=== PATIENT | male | born 1945 | race Caucasian/White ===

== ENCOUNTER 2020-07-15 22:21 | Inpatient (IN) | payer MEDICARE, OTHER ==
[2020-07-16] MEDS ORDERED: Ondansetron PF 4 MG/2 ML Vial IVP PRN (02:00)
[2020-07-16] MEDS ORDERED: Ondansetron ODT 4 MG TAB SL PRN (02:00)
[2020-07-16] MEDS ORDERED: Acetaminophen 325 MG TAB PO PRN (02:00)
[2020-07-16 02:09] VITALS: BMI 23.8
[2020-07-16] MEDS: Vancomycin HCl 1.25 GM in Sodium Chloride 0.9% 250 ML 250 ML IVPB SCH ×2 (05:00→18:00)
--- NOTE | 2020-07-16 05:01 | HP ---
PRIMARY CARE PHYSICIAN: [place] of town, [place]. CHIEF COMPLAINT: Left elbow swelling. HISTORY OF PRESENT ILLNESS: The patient is a 75-year-old male with past medical history significant for diabetes, arthritis, gout, and hyperlipidemia. He presented to an ER in [place] today for redness and pain in his left elbow. He states that he fell 4 days ago and landed on his elbow. He did not have any pain in it until now. He does not think that he has had any fevers. He denies any vomiting, shortness of breath, chest pain, abdominal pain, contact with sick persons or bowel or bladder changes. No previous surgeries on that elbow. In the ER in [place], they took an x-ray of his elbow. They completed lab work and they administered medications. The patient was given ceftriaxone 1 g IV, vancomycin 1 g IV, and Zofran 4 mg. He was then transferred over to the [facility]. He did not receive any medications at this ER or have any further workup. He was transferred as the [facility] does not have Ortho available if needed. PAST MEDICAL HISTORY: Diabetes, arthritis, gout, hyperlipidemia. PAST SURGICAL HISTORY: Pacemaker placement, bilateral knee surgery. ALLERGIES: NO KNOWN DRUG ALLERGIES. MEDICATIONS: 1. 100 mg once a day. 2. Furosemide 20 mg once a day. 3. Losartan 10 mg twice a day. 4. Potassium 10 mEq once a day. SOCIAL HISTORY: The patient lives at home. He denies any alcohol, smoking, or drug use. FAMILY HISTORY: Noncontributory to this visit. REVIEW OF SYSTEMS: All other review of systems are negative unless noted in HPI. PHYSICAL EXAMINATION: VITAL SIGNS: Temperature 97.9, pulse 68, respiratory rate 16, O2 saturation 95% on room air, blood pressure 140/79. CONSTITUTIONAL: Afebrile, normotensive. HEENT: Head; atraumatic, normocephalic. Eyes; extraocular muscles intact. PERRLA. RESPIRATORY: Clear to auscultation bilaterally. No rhonchi. No wheezes. No rales. CARDIOVASCULAR: Regular rate and rhythm. No murmurs. No rubs. No gallops. ABDOMEN: Nontender, nondistended. No guarding. No rigidity. Normal bowel sounds. EXTREMITIES: Left upper extremity with erythema and skin thickening on the left elbow. Cellulitis, blanchable. Full range of motion. Pulses intact. LABORATORY AND IMAGING DATA: These are from the [facility]. Creatinine 0.8, sodium 137, potassium 4.4, lactic acid 1.42, glucose 109. Left elbow x-ray, 3 views, there is soft-tissue swelling in the posterior aspect of the elbow joint. Chronic avulsive changes seen in the ulna. Degenerative changes are seen in the elbow joint. Grossly, there is no acute fracture, subluxation. Recommendation of a followup x-ray should be done in 7 to 14 days. IMPRESSION AND PLAN: Left elbow cellulitis. Continue to monitor for any fever and monitor labs for any increase in white blood cells or other signs of infection. Continue the patient on IV antibiotics. We will defer to day team at this time. Does not appear to have a septic joint as he has full range of motion. Hopefully, we will be able to start seeing improvement soon with the IV antibiotics. Blood cultures have been drawn. The patient with history of gout. We will continue patient on his home medications. Also history of high blood pressure, patient is normotensive currently. We will also continue patient on his home blood pressure medications along with his cholesterol medication. GI and DVT prophylaxis in place. The patient wishes to be a full code. His surrogate decision maker is his son. The patient has been discussed with Dr. Moreno. Job ID: [id number]
[2020-07-16 05:27] LABS: #Eosinphils 0.1 thou/uL (0.0-0.7); #Lymphocytes 2.4 thou/uL (1.20-3.40); #Monocytes 1.3 thou/uL (0.11-0.59); #Neutrophils 5.6 thou/uL (1.40-6.50); %Basophils 0.3 % (0.0-1.0); %Eosinophils 1.5 % (0.0-10.0); %Lymphocytes 25.2 % (21.0-51.0); %Monocytes 13.2 % (0.0-10.0); %Neutrophils 59.8 % (42.0-75.0); Hemoglobin 13.6 g/dL (14.0-18.0); Mean Corpuscular HGB CONC 34.4 g/dL (32.0-36.0); Mean Corpuscular Hemoglobin 32.8 pg (27.0-31.0); Mean Corpuscular Volume 95.5 fL (78.0-98.0); Mean Platelet Volume 5.9 fL (7.4-10.4); Platelet Count 202 thou/uL (130-400); RBC Distribution Width 13.9 % (11.5-14.5); Red Blood Cell (RBC) Count 4.13 mill/uL (4.70-6.10); White Blood Cell (WBC) Count 9.4 thou/uL (4.8-10.8)
[2020-07-16 05:47] LABS: Anion Gap 10 mmol/L (10-20); BUN (Urea Nitrogen) 16 mg/dL (8.4-25.7); Calc. Creatinine Clearance 89 mL/min (70-130); Calcium 8.7 mg/dL (7.8-10.44); Carbon Dioxide 25 mmol/L (23-31); Chloride 104 mmol/L (98-107); Estimated GFR-MDRD Greater than 90; Glucose 101 mg/dL (83-110); Potassium 3.9 mmol/L (3.5-5.1); Sodium 135 mmol/L (136-145)
[2020-07-16] MEDS: Famotidine 20 MG TAB PO SCH ×2 (08:59→21:08)
[2020-07-16 12:55] LABS: SARS-CoV-2 MS2 Positive; SARS-CoV-2 N Gene Negative; SARS-CoV-2 S Gene Negative; SARS-CoV-2 by NAA Not Detected (NotDetected); SARS-CoV-2 orf1ab Negative
--- NOTE | 2020-07-16 18:14 | PDOC.HOSPP ---
- Subjective Encounter Date: 07/16/20 Encounter Time: 18:00 Subjective: f/u for L elbow cellulitis on Rocephin/Vancomycin. States he fell on L elbow a few days prior then noted the redness and swelling. X-rays neg for fracture or dislocation. - Objective Vital Signs & Weight: Vital Signs (12 hours) Temp Pulse Resp BP Pulse Ox 07/16/20 15:33 98.4 F 69 18 144/74 H 97 07/16/20 12:27 98.5 F 73 16 115/84 95 07/16/20 08:18 98.0 F 68 14 129/55 L 94 L 07/16/20 08:00 94 L Weight Weight 161 lb I&O: 07/15/20 07/16/20 07/17/20 06:59 06:59 06:59 Intake Total 490 Balance 490 Result Diagrams: 07/16/20 05:12 07/16/20 05:12 Additional Labs: Laboratory Tests 07/16/20 01:20 SARS-CoV-2 (PCR) Not Detected Hospitalist ROS - Medication Medications: Active Medications Generic Name Dose Route Start Last Admin Trade Name Tyrelq PRN Reason Stop Dose Admin Famotidine 20 mg 07/16/20 09:00 07/16/20 08:59 Famotidine 20 Mg Tab PO 20 mg BID HUGO Administration Vancomycin HCl 1.25 gm/ Sodium 250 mls @ 166.67 mls/hr 07/16/20 06:00 07/16/20 05:00 Chloride IVPB 250 mls 0600,1800 HUGO Administration - Exam General Appearance: NAD, awake alert Eye: PERRL, anicteric sclera ENT: normocephalic atraumatic, no oropharyngeal lesions Neck: supple, symmetric, no JVD, no thyromegaly, no lymphadenopathy Heart: RRR, no gallops, no rubs, normal peripheral pulses Heart - other findings: S1, S2 Respiratory: CTAB, no rales, no ronchi, normal chest expansion Gastrointestinal: soft, non-tender, non-distended, normal bowel sounds, no palpable masses Extremities: no cyanosis Extremities - other findings: L elbow with edema/erythema and TTP Skin: normal turgor Neurological: cranial nerve grossly intact, no new deficit Musculoskeletal: normal tone, normal strength, no muscle wasting Psychiatric: normal affect, A&O x 3 Hosp A/P (1) Cellulitis of left elbow Code(s): L03.114 - CELLULITIS OF LEFT UPPER LIMB Status: Acute Plan: Continue Rocephin/Vancomycin, serial exams, consider Orthopedic evaluation, pain control (2) HTN (hypertension) Code(s): I10 - ESSENTIAL (PRIMARY) HYPERTENSION Status: Chronic Qualifiers: Hypertension type: essential hypertension Qualified Code(s): I10 - Essential (primary) hypertension Plan: Resume home BP regimen (3) DM II (diabetes mellitus, type II), controlled Code(s): E11.9 - TYPE 2 DIABETES MELLITUS WITHOUT COMPLICATIONS Status: Acute Plan: Diet managed (4) CAD (coronary artery disease) Code(s): I25.10 - ATHSCL HEART DISEASE OF [place] CORONARY ARTERY W/O ANG PCTRS Status: Chronic Plan: Continue med mgmt, ASA/Lovastatin - Plan continue antibiotics, social insurance administrator, out of bed/ambulate, DVT proph w/SCDs Stable currently Continue Vancomycin Increase Rocephin 2gm IV daily Pain control as indicated Toradol 30mg IV q6h prn Consider Orthopedic evaluation if no improvement in 24h AM lab: BMP, CBC, Vanc trough
[2020-07-16] MEDS ORDERED: cefTRIAXone\\ROCEPHIN 1 GM in Sodium Chloride 0.9% 100 ML IVPB SCH (19:00)
[2020-07-16] MEDS ORDERED: cefTRIAXone\\ROCEPHIN 2 GM in Sodium Chloride 0.9% 100 ML IVPB SCH (19:00)
[2020-07-16] MEDS ORDERED: FLU VACC QS2020-21(65YR UP)/PF 240 MCG/0.7 ML SYRINGE IM ONE (21:00)
[2020-07-17 05:14] LABS: #Eosinphils 0.2 thou/uL (0.0-0.7); #Lymphocytes 2.2 thou/uL (1.20-3.40); #Neutrophils 6.4 thou/uL (1.40-6.50); %Basophils 0.2 % (0.0-1.0); %Eosinophils 1.6 % (0.0-10.0); %Lymphocytes 22.1 % (21.0-51.0); %Monocytes 10.7 % (0.0-10.0); %Neutrophils 65.3 % (42.0-75.0); Hemoglobin 13.3 g/dL (14.0-18.0); Mean Corpuscular HGB CONC 32.4 g/dL (32.0-36.0); Mean Corpuscular Hemoglobin 30.5 pg (27.0-31.0); Mean Corpuscular Volume 94.2 fL (78.0-98.0); Mean Platelet Volume 6.1 fL (7.4-10.4); Platelet Count 210 thou/uL (130-400); RBC Distribution Width 13.8 % (11.5-14.5); Red Blood Cell (RBC) Count 4.35 mill/uL (4.70-6.10); White Blood Cell (WBC) Count 9.8 thou/uL (4.8-10.8)
[2020-07-17 05:40] LABS: Anion Gap 14 mmol/L (10-20); BUN (Urea Nitrogen) 17 mg/dL (8.4-25.7); Calc. Creatinine Clearance 83 mL/min (70-130); Calcium 8.9 mg/dL (7.8-10.44); Carbon Dioxide 22 mmol/L (23-31); Chloride 104 mmol/L (98-107); Estimated GFR-MDRD Greater than 90; Glucose 110 mg/dL (83-110); Potassium 3.9 mmol/L (3.5-5.1); Sodium 136 mmol/L (136-145); Uric Acid 6.4 mg/dL (3.5-7.2)
[2020-07-17 08:03] LABS: Vancomycin, Trough 14.8 ug/mL
[2020-07-17] MEDS: Losartan 25 MG TAB PO SCH (08:52)
[2020-07-17] MEDS: Vancomycin HCl 1.25 GM in Sodium Chloride 0.9% 250 ML 250 ML IVPB SCH ×2 (08:52→19:59)
[2020-07-17] MEDS: Potassium Chloride 10 MEQ TAB PO SCH (08:52)
[2020-07-17] MEDS: Aspirin 81 mg Enteric Coated Tablet PO SCH (08:52)
[2020-07-17] MEDS: Furosemide 20 MG TAB PO SCH (08:52)
[2020-07-17] MEDS: Allopurinol 100 MG TAB PO SCH (08:53)
[2020-07-17] MEDS: Famotidine 20 MG TAB PO SCH ×2 (08:53→19:59)
--- NOTE | 2020-07-17 17:12 | PDOC.HOSPP ---
- Subjective Encounter Date: 07/17/20 Encounter Time: 09:00 Subjective: Pt seen for followup re: cellulitis. Denies fevers. c/o left elbow pain. - Objective Vital Signs & Weight: Vital Signs (12 hours) Temp Pulse Resp BP Pulse Ox 07/17/20 15:37 99.3 F 80 18 106/62 96 07/17/20 11:05 98.4 F 77 16 116/67 94 L 07/17/20 07:25 98.3 F 73 16 143/72 H 94 L Weight Weight 161 lb I&O: 07/16/20 07/17/20 07/18/20 06:59 06:59 06:59 Intake Total 490 340 Output Total 600 Balance 490 -260 Result Diagrams: 07/17/20 04:54 07/17/20 04:54 Additional Labs: I reviewed patient's labs and MAR Hospitalist ROS - Review of Systems Cardiovascular: denies: chest pain, palpitations, orthopnea, paroxysmal noc. dyspnea, edema, light headedness Musculoskeletal: reports: other (left elbow pain). denies: neck pain, shoulder pain, arm pain, back pain, hand pain, leg pain, foot pain Skin: reports: rash. denies: lesions, edyta, bruising - Medication Medications: Active Medications Generic Name Dose Route Start Last Admin Trade Name Pola PRN Reason Stop Dose Admin Allopurinol 100 mg 07/17/20 09:00 07/17/20 08:53 Allopurinol 100 Mg Tab PO 100 mg DAILY HUGO Administration Aspirin 81 mg 07/17/20 09:00 07/17/20 08:52 Aspirin 81 Mg Enteric Coated Tablet PO 81 mg DAILY HUGO Administration Famotidine 20 mg 07/16/20 09:00 07/17/20 08:53 Famotidine 20 Mg Tab PO 20 mg BID HUGO Administration Furosemide 20 mg 07/17/20 09:00 07/17/20 08:52 Furosemide 20 Mg Tab PO 20 mg DAILY HUGO Administration Vancomycin HCl 1.25 gm/ Sodium 250 mls @ 166.67 mls/hr 07/17/20 08:00 07/17/20 08:52 Chloride IVPB 250 mls 0800,2000 HUGO Administration Losartan Potassium 25 mg 07/17/20 09:00 07/17/20 08:52 Losartan 25 Mg Tab PO 25 mg DAILY HUGO Administration Potassium Chloride 10 meq 07/17/20 08:00 07/17/20 08:52 Potassium Chloride 10 Meq Tab PO 10 meq QAM-WM HUGO Administration Sodium Chloride 10 ml 07/16/20 21:00 07/17/20 08:53 Flush - Normal Saline 10 Ml Syringe IVF 10 ml Q12HR HUGO Administration - Exam General Appearance: awake alert Eye: anicteric sclera ENT: moist mucosa Neck: supple Heart: RRR Respiratory: CTAB Gastrointestinal: soft Skin: no rashes Psychiatric: normal affect, normal behavior Hosp A/P - Plan -Assessment (1) Cellulitis of left elbow Code(s): L03.114 - CELLULITIS OF LEFT UPPER LIMB Status: Acute (2) HTN (hypertension) Code(s): I10 - ESSENTIAL (PRIMARY) HYPERTENSION Status: Chronic (3) CAD (coronary artery disease) Code(s): I25.10 - ATHSCL HEART DISEASE OF [place] CORONARY ARTERY W/O ANG PCTRS Status: Chronic - Plan continue vancomycin and ceftriaxone Consult ID HTN controlled CAD stable.
[2020-07-17] MEDS: Simvastatin 5 MG TAB PO SCH (17:23)
--- NOTE | 2020-07-17 19:02 | CON ---
DATE OF CONSULTATION: 07/17/2020 REASON FOR CONSULTATION: Left elbow inflammatory process. HISTORY OF PRESENT ILLNESS: A 75-year-old with history of type 2 diabetes, gout, hyperlipidemia, who developed a left elbow inflammatory process for the past few days after falling on his elbow at home. The inflammatory process developed subsequently and has limited his range of motion. He was seen in [place] close to his home, given broad-spectrum antimicrobial coverage and transferred for admission. BP was 140/79 and temperature was 97.9. He denied any headaches. No visual symptoms, sore throat, odynophagia, or dysphagia. No cough, sputum production, or chest pain. No abdominal pain. Voiding without difficulty in the urinal. PAST MEDICAL HISTORY: Includes type 2 diabetes, gout, degenerative arthritis, hyperlipidemia. PAST SURGICAL HISTORY: Pacemaker placement for unknown indication, bilateral knee replacements. ALLERGIES: NONE. SOCIAL HISTORY: Retired, used to work with [employer]. Never smoker. No alcoholic beverage use. Lives with family members in [place]. FAMILY HISTORY: Noncontributory. CURRENT MEDICATIONS: 1. Ceftriaxone. 2. Vancomycin. 3. Zocor. 4. Furosemide. PHYSICAL EXAMINATION: VITAL SIGNS: T-max 99.2, blood pressure 116/67, heart rate 77, respiratory rate 16, O2 saturation 94% on room air. SKIN: Shows the extensive area of inflammatory activity with erythema in the left elbow, induration, and limitation of range of motion. There is obvious swelling of the bursa with spreading erythema from the bursa towards the proximal and distal aspects of the left upper extremity. LYMPH: No lymphadenopathy noted. HEENT: Ocular movements are conjugate. Sclerae are white. Conjunctivae are normal. Oral cavity with only a few remaining teeth, remainder ones with marked decay and gum disease. NECK: Supple. No jugular vein distention. LUNGS: Symmetric. Clear breath sounds. HEART: S1 and S2. Regular rate. No S3 or S4. ABDOMEN: Soft, not distended or tender. No ascites. No bladder distention. EXTREMITIES: No joint inflammatory activity. Specifically, the knee replacement sites have excellent range of motion with no inflammatory activity. Pulses are 1+ in dorsalis pedis. Plantar responses are flexor. NEUROLOGIC: His cognitive function, he is awake and alert. He is kind of hyperactive a little bit with flight of ideas and I do not know if he has a psychiatric diagnosis or not. He follows commands though and does not seem to be delusional at this point. LABORATORY DATA: His blood cultures are no growth thus far. The [place] laboratory data include creatinine 0.8 and glucose 109. X-rays of the elbow with soft tissue swelling. There are some changes in the ulna, not clear what the nature of those are, but no fracture. I do not see a CBC here. ASSESSMENT AND RECOMMENDATIONS: Type 2 diabetes, hx of gout, with fall and injury to the left elbow and now inflammatory process, likely olecranon bursitis of infectious nature. Intra-articular inflammatory process is not ruled out. CBC has already been ordered, but is not resulted yet. Blood cultures have been taken as well and are pending, and a basic metabolic panel. The organisms typically involved in this include Staphylococcus aureus/methicillin-resistant Staphylococcus aureus and Streptococci. In this case, because he fell, the possibility of gram-negative rods from soil is significant as well. Anaerobes are less likely. We will see how he responds to the antimicrobials, but he may require surgical drainage of the bursa depending on clinical progress. His range of motion was limited, but not that much. I think most of the pain that he has is from the bursa inflammatory process and cellulitis. In other words, an intra-articular process is less likely. He is at risk for seeding of the implants including the knee joints as well as the pacemaker in the near future, so there is recrudescence of fever or new development of fever. We will have to evaluate for those complications. In terms of treatment after the antimicrobials are resulted in improvement, then continuation will be hopefully with oral antimicrobial therapy. Evidently, it would be important to identify the organism, and again, he will need surgical consultation for olecranon bursitis, incision and drainage. Job ID: [id number] [facility]
[2020-07-17] MEDS: cefTRIAXone\\ROCEPHIN 2 GM in Sodium Chloride 0.9% 100 ML IVPB SCH (20:00)
[2020-07-18 05:54] LABS: #Eosinphils 0.2 thou/uL (0.0-0.7); #Lymphocytes 1.8 thou/uL (1.20-3.40); #Monocytes 1.1 thou/uL (0.11-0.59); #Neutrophils 5.6 thou/uL (1.40-6.50); %Basophils 0.5 % (0.0-1.0); %Eosinophils 2.6 % (0.0-10.0); %Lymphocytes 20.9 % (21.0-51.0); %Monocytes 12.3 % (0.0-10.0); %Neutrophils 63.7 % (42.0-75.0); Hemoglobin 13.2 g/dL (14.0-18.0); Mean Corpuscular HGB CONC 33.5 g/dL (32.0-36.0); Mean Corpuscular Hemoglobin 31.7 pg (27.0-31.0); Mean Corpuscular Volume 94.5 fL (78.0-98.0); Mean Platelet Volume 5.8 fL (7.4-10.4); Platelet Count 217 thou/uL (130-400); RBC Distribution Width 13.9 % (11.5-14.5); Red Blood Cell (RBC) Count 4.16 mill/uL (4.70-6.10); White Blood Cell (WBC) Count 8.8 thou/uL (4.8-10.8)
[2020-07-18 06:21] LABS: Anion Gap 11 mmol/L (10-20); BUN (Urea Nitrogen) 17 mg/dL (8.4-25.7); Calc. Creatinine Clearance 85 mL/min (70-130); Calcium 8.8 mg/dL (7.8-10.44); Carbon Dioxide 25 mmol/L (23-31); Chloride 104 mmol/L (98-107); Estimated GFR-MDRD Greater than 90; Glucose 103 mg/dL (83-110); Potassium 3.7 mmol/L (3.5-5.1); Sodium 136 mmol/L (136-145)
[2020-07-18] MEDS: Losartan 25 MG TAB PO SCH (08:39)
[2020-07-18] MEDS: Famotidine 20 MG TAB PO SCH ×2 (08:39→20:28)
[2020-07-18] MEDS: Potassium Chloride 10 MEQ TAB PO SCH (08:39)
[2020-07-18] MEDS: Allopurinol 100 MG TAB PO SCH (08:39)
[2020-07-18] MEDS: Furosemide 20 MG TAB PO SCH (08:39)
[2020-07-18] MEDS: Vancomycin HCl 1.25 GM in Sodium Chloride 0.9% 250 ML 250 ML IVPB SCH ×3 (08:39→21:06)
[2020-07-18] MEDS: Aspirin 81 mg Enteric Coated Tablet PO SCH (08:39)
--- NOTE | 2020-07-18 11:24 | CON ---
DATE OF CONSULTATION: 07/18/2020 REQUESTING PHYSICIAN: Dr. Jairon Brunner. CONSULTING PHYSICIAN: Dr. Jonnie Weston. REASON FOR CONSULTATION: Left elbow swelling and erythema. BRIEF CLINICAL HISTORY: Too is a 75-year-old male who was admitted to the Medicine Service on July 15, 2020, three days ago for swelling of the left elbow. He does have a history of gout. There was a fall reported by the patient, which preceded the onset of pain and swelling a few days ago. He does also have a history of diabetes type 2. He was seen in [place], given broad-spectrum antibiotic coverage and transferred to our hospital for admission of refractory olecranon bursitis. Dr. Burgess evaluated the patient and concluded this was possibly a septic process and our service has been consulted for orthopedic evaluation. PAST MEDICAL HISTORY: Diabetes type 2, history of gout, osteoarthritis, hyperlipidemia. PHYSICAL EXAMINATION: EXTREMITIES: Inspection of left elbow demonstrates him to have circumferential swelling, which is profound, erythematous, and there is edema in the skin. I can palpate loculation and fluid collection both on the ulnar aspect of the elbow at the apex of the olecranon and also dorsally. This does not appear consistent with a gouty process, but more of a septic process clinically. Elbow range of motion is significantly limited due to the tenseness and discomfort. Neurovascularly intact in the left upper extremity, but elbow swelling is notable and tense, edematous and loculations are palpable. Fluid collections noted and no active drainage identified. VITAL SIGNS: He has remained afebrile. Temperature is 98, pulse 73, respiratory rate 16, O2 saturation is 95% on room air, blood pressure 175/72. GENERAL: He is alert, responsive, and appropriate with examiner. LABORATORY DATA: White blood cell count 8.8, hemoglobin 13.2, hematocrit 39.3. IMPRESSION: Suspect left elbow septic bursitis. Clinically, I am not sure if this gets into the joint or if range of motion is limited by discomfort and tenseness of the elbow itself. PLAN: 1. The patient will remain n.p.o. after midnight. 2. The risks, benefits, options, alternatives, and rationale for proceeding with irrigation, debridement, and exploration of the left olecranon bursa and elbow has been explained in great detail to the patient. He is ready to proceed. All questions were answered. No guarantee of outcome stated or implied. 3. N.p.o. after midnight. Please see orders. Job ID: [id number]
--- NOTE | 2020-07-18 13:21 | PDOC.HOSPP ---
- Subjective Encounter Date: 07/18/20 Encounter Time: 10:30 Subjective: Patient seen for follow-up regarding left elbow cellulitis. He denies any fevers. - Objective Vital Signs & Weight: Vital Signs (12 hours) Temp Pulse Resp BP Pulse Ox 07/18/20 11:46 99.5 F 79 16 125/57 L 95 07/18/20 07:15 98.0 F 73 16 125/72 95 07/18/20 04:48 97.5 F L 92 18 148/88 H 96 Weight Weight 161 lb I&O: 07/17/20 07/18/20 07/19/20 06:59 06:59 06:59 Intake Total 340 1010 Output Total 600 900 Balance -260 110 Result Diagrams: 07/18/20 05:26 07/18/20 05:26 Additional Labs: I reviewed patient's labs and MAR Hospitalist ROS - Review of Systems Constitutional: denies: fever, chills, sweats, weakness, malaise Cardiovascular: denies: chest pain, palpitations, orthopnea, paroxysmal noc. d yspnea, edema, light headedness Genitourinary: denies: dysuria, frequency, incontinence, hematuria, retention Musculoskeletal: reports: other (Pain in the left elbow) - Medication Medications: Active Medications Generic Name Dose Route Start Last Admin Trade Name Tyrelq PRN Reason Stop Dose Admin Allopurinol 100 mg 07/17/20 09:00 07/18/20 08:39 Allopurinol 100 Mg Tab PO 100 mg DAILY HUGO Administration Aspirin 81 mg 07/17/20 09:00 07/18/20 08:39 Aspirin 81 Mg Enteric Coated Tablet PO 81 mg DAILY HUGO Administration Famotidine 20 mg 07/16/20 09:00 07/18/20 08:39 Famotidine 20 Mg Tab PO 20 mg BID HUGO Administration Furosemide 20 mg 07/17/20 09:00 07/18/20 08:39 Furosemide 20 Mg Tab PO 20 mg DAILY HUGO Administration Ceftriaxone Sodium 2 gm/ 100 mls @ 200 mls/hr 07/17/20 21:00 07/17/20 20:00 Sodium Chloride IVPB 100 mls Q24HR HUGO Administration Vancomycin HCl 1.25 gm/ Sodium 250 mls @ 166.67 mls/hr 07/17/20 08:00 07/18/20 08:39 Chloride IVPB 250 mls 0800,2000 HUGO Administration Losartan Potassium 25 mg 07/17/20 09:00 07/18/20 08:39 Losartan 25 Mg Tab PO 25 mg DAILY HUGO Administration Potassium Chloride 10 meq 07/17/20 08:00 07/18/20 08:39 Potassium Chloride 10 Meq Tab PO 10 meq QAM-WM HUGO Administration Simvastatin 5 mg 07/17/20 17:00 07/17/20 17:23 Simvastatin 5 Mg Tab PO 5 mg QPM-WM HUGO Administration Sodium Chloride 10 ml 07/16/20 21:00 07/18/20 08:39 Flush - Normal Saline 10 Ml Syringe IVF 10 ml Q12HR HUGO Administration - Exam General Appearance: awake alert Eye: anicteric sclera ENT: moist mucosa Neck: supple Heart: RRR Respiratory: CTAB Gastrointestinal: soft, non-tender Extremities: no cyanosis Skin: no rashes Psychiatric: normal affect, normal behavior Hosp A/P - Plan -Assessment (1) Cellulitis of left elbow Code(s): L03.114 - CELLULITIS OF LEFT UPPER LIMB Status: Acute (2) HTN (hypertension) Code(s): I10 - ESSENTIAL (PRIMARY) HYPERTENSION Status: Chronic (3) CAD (coronary artery disease) Code(s): I25.10 - ATHSCL HEART DISEASE OF [place] CORONARY ARTERY W/O ANG PCTRS Status: Chronic - Plan Appreciate infectious disease service input. We will continue ceftriaxone and vancomycin HTN controlled CAD stable. Orthopedic surgery consulted regarding olecranon bursitis.
[2020-07-18] MEDS: Simvastatin 5 MG TAB PO SCH (16:32)
[2020-07-18 19:43] LABS: Vancomycin, Trough 21.3 ug/mL
[2020-07-18] MEDS: cefTRIAXone\\ROCEPHIN 2 GM in Sodium Chloride 0.9% 100 ML IVPB SCH (20:28)
[2020-07-18] MEDS: Vancomycin 1 GM in Premix Bag 1 BAG IVPB SCH (21:09)
[2020-07-19 06:18] LABS: #Eosinphils 0.2 thou/uL (0.0-0.7); #Lymphocytes 1.9 thou/uL (1.20-3.40); #Monocytes 1.2 thou/uL (0.11-0.59); #Neutrophils 4.9 thou/uL (1.40-6.50); %Basophils 0.3 % (0.0-1.0); %Lymphocytes 22.9 % (21.0-51.0); %Monocytes 14.1 % (0.0-10.0); %Neutrophils 59.7 % (42.0-75.0); Hemoglobin 12.9 g/dL (14.0-18.0); Mean Corpuscular HGB CONC 33.6 g/dL (32.0-36.0); Mean Corpuscular Hemoglobin 32.2 pg (27.0-31.0); Mean Corpuscular Volume 95.9 fL (78.0-98.0); Platelet Count 238 thou/uL (130-400); RBC Distribution Width 13.8 % (11.5-14.5); Red Blood Cell (RBC) Count 4.01 mill/uL (4.70-6.10); White Blood Cell (WBC) Count 8.2 thou/uL (4.8-10.8)
[2020-07-19 06:38] LABS: Anion Gap 13 mmol/L (10-20); BUN (Urea Nitrogen) 16 mg/dL (8.4-25.7); Calc. Creatinine Clearance 83 mL/min (70-130); Calcium 9.4 mg/dL (7.8-10.44); Carbon Dioxide 28 mmol/L (23-31); Chloride 102 mmol/L (98-107); Estimated GFR-MDRD Greater than 90; Glucose 102 mg/dL (83-110); Potassium 4.5 mmol/L (3.5-5.1); Sodium 138 mmol/L (136-145)
[2020-07-19] MEDS ORDERED: Fentanyl 250 MCG/5 ML VIAL ONE (07:03)
[2020-07-19] MEDS ORDERED: Promethazine HCl 25 MG/ML VIAL SLOW IVP PRN (07:51)
[2020-07-19] MEDS ORDERED: Ondansetron HCl/PF 4 MG/2 ML Vial IVP PRN (07:51)
[2020-07-19] MEDS ORDERED: Promethazine HCl 25 MG/ML VIAL IM PRN (07:51)
[2020-07-19] MEDS ORDERED: SUGAMMADEX SODIUM 500 MG/5 ML VIAL ONE (08:40)
[2020-07-19] MEDS: Furosemide 20 MG TAB PO SCH (09:42)
[2020-07-19] MEDS: Allopurinol 100 MG TAB PO SCH (09:42)
[2020-07-19] MEDS: Aspirin 81 mg Enteric Coated Tablet PO SCH (09:42)
[2020-07-19] MEDS: Potassium Chloride 10 MEQ TAB PO SCH (09:42)
[2020-07-19] MEDS: Losartan 25 MG TAB PO SCH (09:42)
[2020-07-19] MEDS: Famotidine 20 MG TAB PO SCH ×2 (09:42→21:52)
[2020-07-19] MEDS: Vancomycin 1 GM in Premix Bag 1 BAG IVPB SCH ×2 (09:46→21:52)
[2020-07-19] MEDS ORDERED: diphenhydrAMINE 50 MG/ML VIAL ONE (12:53)
[2020-07-19] MEDS ORDERED: Rocuronium Bromide 10 MG/ML (10ML VIAL) ONE (12:53)
[2020-07-19] MEDS ORDERED: Lidocaine 1% PF 5 ML VIAL ONE (12:53)
[2020-07-19] MEDS ORDERED: Ondansetron PF 4 MG/2 ML Vial ONE (12:53)
[2020-07-19] MEDS ORDERED: PROPOFOL 200 MG/20 ML VIAL ONE (12:53)
[2020-07-19] MEDS ORDERED: PHENYLEPHRINE-NS 100 MCG/ML 10 ML SYRINGE ONE (12:53)
--- NOTE | 2020-07-19 15:24 | PDOC.HOSPP ---
- Subjective Encounter Date: 07/19/20 Encounter Time: 13:00 Subjective: Patient seen for follow-up regarding left elbow cellulitis. Underwent procedure earlier today. Reports feeling sleepy. - Objective Vital Signs & Weight: Vital Signs (12 hours) Temp Pulse Resp BP Pulse Ox 07/19/20 09:35 97.9 F 66 18 155/77 H 100 07/19/20 03:47 98.7 F 77 18 111/68 95 Weight Weight 161 lb I&O: 07/18/20 07/19/20 07/20/20 06:59 06:59 06:59 Intake Total 1010 840 Output Total 900 Balance 110 840 Result Diagrams: 07/19/20 05:33 07/19/20 05:33 Additional Labs: I reviewed patient's labs and MAR Hospitalist ROS - Review of Systems Cardiovascular: denies: chest pain, palpitations, orthopnea, paroxysmal noc. dyspnea, edema, light headedness Gastrointestinal: denies: nausea, vomiting, abdominal pain, diarrhea, constipation, melena, hematochezia - Medication Medications: Active Medications Generic Name Dose Route Start Last Admin Trade Name Freq PRN Reason Stop Dose Admin Allopurinol 100 mg 07/17/20 09:00 07/19/20 09:42 Allopurinol 100 Mg Tab PO 100 mg DAILY HUGO Administration Aspirin 81 mg 07/17/20 09:00 07/19/20 09:42 Aspirin 81 Mg Enteric Coated Tablet PO 81 mg DAILY HUGO Administration Famotidine 20 mg 07/16/20 09:00 07/19/20 09:42 Famotidine 20 Mg Tab PO 20 mg BID HUGO Administration Furosemide 20 mg 07/17/20 09:00 07/19/20 09:42 Furosemide 20 Mg Tab PO 20 mg DAILY HUGO Administration Ceftriaxone Sodium 2 gm/ 100 mls @ 200 mls/hr 07/17/20 21:00 07/18/20 20:28 Sodium Chloride IVPB 100 mls Q24HR HUGO Administration Vancomycin HCl 1 gm/ Device 200 mls @ 200 mls/hr 07/18/20 22:00 07/19/20 09:46 IVPB 200 mls 1000,2200 HUGO Administration Losartan Potassium 25 mg 07/17/20 09:00 07/19/20 09:42 Losartan 25 Mg Tab PO 25 mg DAILY HUGO Administration Potassium Chloride 10 meq 07/17/20 08:00 07/19/20 09:42 Potassium Chloride 10 Meq Tab PO 10 meq QAM-WM HUGO Administration Simvastatin 5 mg 07/17/20 17:00 07/18/20 16:32 Simvastatin 5 Mg Tab PO 5 mg QPM-WM HUGO Administration Sodium Chloride 10 ml 07/16/20 21:00 07/19/20 09:43 Flush - Normal Saline 10 Ml Syringe IVF 10 ml Q12HR HUGO Administration - Exam General Appearance: awake alert Eye: anicteric sclera ENT: moist mucosa Neck: supple Heart: RRR Respiratory: CTAB Gastrointestinal: soft, non-tender Skin: no rashes Psychiatric: normal affect, normal behavior Hosp A/P - Plan -Assessment (1) Cellulitis of left elbow Code(s): L03.114 - CELLULITIS OF LEFT UPPER LIMB Status: Acute (2) HTN (hypertension) Code(s): I10 - ESSENTIAL (PRIMARY) HYPERTENSION Status: Chronic (3) CAD (coronary artery disease) Code(s): I25.10 - ATHSCL HEART DISEASE OF [place] CORONARY ARTERY W/O ANG PCTRS Status: Chronic - Plan Status post procedure by orthopedic surgery service. Continue ceftriaxone and vancomycin, follow cultures. HTN controlled CAD stable.
--- NOTE | 2020-07-19 15:51 | OP ---
DATE OF PROCEDURE: 07/19/2020 PREOPERATIVE DIAGNOSIS: Left septic olecranon bursitis. 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 PROCEDURE PERFORMED: Incision and drainage left elbow. CLINICAL TRIALS DATA COORDINATOR: None. ANESTHESIA: Patient received general endotracheal intubation. ESTIMATED BLOOD LOSS: Less than of 30 mL. TOURNIQUET TIME: None. ANTIBIOTICS: Vancomycin as scheduled. CULTURES: One deep culture was taken as well as gouty tophus was taken to confirm diagnosis of gout in the tophus. COMPLICATIONS: None. HISTORY: Mr. Hernandez is a 75-year-old male who presented with erythema and swelling of the left leg, received Rocephin in the ED in [place]. X-rays were taken, showed chronic degenerative changes of his left elbow. He had swelling and erythema throughout the left elbow concerning for septic olecranon bursitis. Patient was seen by Dr. Burgess who confirmed the concern and the septic elbow is currently receiving vanc. He was consented for I and D of his left elbow for cultures. He said that he understood the risks and benefits of procedure to include pain, scar, bleeding, infection, damage to vital structures, decreased range of motion and strength, need for further surgeries. Patient I and D and leave this open for wound packing for healing by secondary intention. He understood this risks and benefits and elected to proceed. DESCRIPTION OF PROCEDURE: Time-out was performed designating the patient's left upper extremity, the operative site, based on site, consents, and marking. After time-out the patient's right upper extremity was prepped and draped in a sterile fashion. Incision just distal to the olecranon tip came down through skin and had some scarred in tissue that was adhered to the patient's triceps insertion. There was what appeared to be a gouty tophus and chalky substance noted within, which I sent off for culture. I used blunt dissection to create a plane medially and laterally. Some serous fluid was other which could be consistent with Staph or strep infection. I took cultures from none. I ensured that I did a complete decompression and 360-degree release from where I was and concerned this could be secondary to his gout or may also be a superimposed infection. I washed with 2 L water and packed the wound open. The patient will undergo wound care. Continue IV antibiotics. Will be followed inhouse. Job ID: [id number]
[2020-07-19] MEDS: Simvastatin 5 MG TAB PO SCH (17:13)
[2020-07-19] MEDS: cefTRIAXone\\ROCEPHIN 2 GM in Sodium Chloride 0.9% 100 ML IVPB SCH (21:53)
[2020-07-20] MEDS: Aspirin 81 mg Enteric Coated Tablet PO SCH (08:31)
[2020-07-20] MEDS: Furosemide 20 MG TAB PO SCH (08:31)
[2020-07-20] MEDS: Allopurinol 100 MG TAB PO SCH (08:31)
[2020-07-20] MEDS: Famotidine 20 MG TAB PO SCH ×3 (08:31→21:36)
[2020-07-20] MEDS: Losartan 25 MG TAB PO SCH (08:31)
[2020-07-20] MEDS: Potassium Chloride 10 MEQ TAB PO SCH (08:32)
[2020-07-20 10:45] LABS: Vancomycin, Trough 16.9 ug/mL
[2020-07-20] MEDS: Vancomycin 1 GM in Premix Bag 1 BAG IVPB SCH ×2 (11:02→22:37)
--- NOTE | 2020-07-20 13:24 | PDOC.HOSPP ---
- Subjective Encounter Date: 07/20/20 Encounter Time: 09:30 Subjective: Patient seen in follow-up for cellulitis over the left elbow. Denies any new complaints. - Objective Vital Signs & Weight: Vital Signs (12 hours) Temp Pulse Resp BP Pulse Ox 07/20/20 11:28 98.5 F 69 20 110/59 L 96 07/20/20 07:47 98.3 F 69 21 H 134/71 94 L 07/20/20 04:48 98.7 F 76 16 125/70 93 L Weight Weight 161 lb I&O: 07/19/20 07/20/20 07/21/20 06:59 06:59 06:59 Intake Total 840 Balance 840 Result Diagrams: 07/19/20 05:33 07/19/20 05:33 Additional Labs: I reviewed patient's labs and MAR Hospitalist ROS - Review of Systems Cardiovascular: denies: chest pain, palpitations, orthopnea, paroxysmal noc. dyspnea, edema, light headedness, other Musculoskeletal: reports: other (Left elbow pain). denies: neck pain, shoulder pain, arm pain, back pain, hand pain, leg pain, foot pain - Medication Medications: Active Medications Generic Name Dose Route Start Last Admin Trade Name Freq PRN Reason Stop Dose Admin Allopurinol 100 mg 07/17/20 09:00 07/20/20 08:31 Allopurinol 100 Mg Tab PO 100 mg DAILY HUGO Administration Aspirin 81 mg 07/17/20 09:00 07/20/20 08:31 Aspirin 81 Mg Enteric Coated Tablet PO 81 mg DAILY HUGO Administration Famotidine 20 mg 07/16/20 09:00 07/20/20 08:31 Famotidine 20 Mg Tab PO 20 mg BID HUGO Administration Furosemide 20 mg 07/17/20 09:00 07/20/20 08:31 Furosemide 20 Mg Tab PO 20 mg DAILY HUGO Administration Ceftriaxone Sodium 2 gm/ 100 mls @ 200 mls/hr 07/17/20 21:00 07/19/20 21:53 Sodium Chloride IVPB 100 mls Q24HR HUGO Administration Vancomycin HCl 1 gm/ Device 200 mls @ 200 mls/hr 07/18/20 22:00 07/20/20 11:02 IVPB 200 mls 1000,2200 HUGO Administration Losartan Potassium 25 mg 07/17/20 09:00 07/20/20 08:31 Losartan 25 Mg Tab PO 25 mg DAILY HUGO Administration Potassium Chloride 10 meq 07/17/20 08:00 07/20/20 08:32 Potassium Chloride 10 Meq Tab PO 10 meq QAM-WM HUGO Administration Simvastatin 5 mg 07/17/20 17:00 07/19/20 17:13 Simvastatin 5 Mg Tab PO 5 mg QPM-WM HUGO Administration Sodium Chloride 10 ml 07/16/20 21:00 07/20/20 08:37 Flush - Normal Saline 10 Ml Syringe IVF 10 ml Q12HR HUGO Administration - Exam General Appearance: awake alert Eye: anicteric sclera ENT: moist mucosa Neck: supple Heart: RRR Respiratory: CTAB Gastrointestinal: soft, non-tender Extremities - other findings: Left elbow dressing Psychiatric: normal affect, normal behavior Hosp A/P - Plan -Assessment (1) Cellulitis of left elbow Code(s): L03.114 - CELLULITIS OF LEFT UPPER LIMB Status: Acute (2) HTN (hypertension) Code(s): I10 - ESSENTIAL (PRIMARY) HYPERTENSION Status: Chronic (3) CAD (coronary artery disease) Code(s): I25.10 - ATHSCL HEART DISEASE OF [place] CORONARY ARTERY W/O ANG PCTRS Status: Chronic - Plan Patient appears to have had cellulitis and gout flare. Pathology report on [facility] pending. Continue ceftriaxone and vancomycin, follow cultures. HTN controlled CAD stable.
[2020-07-20] MEDS: Simvastatin 5 MG TAB PO SCH (16:37)
--- NOTE | 2020-07-20 18:29 | PRG ---
DATE OF SERVICE: 07/20/2020 SUBJECTIVE: Mr. Hernandez had a surgical intervention by Dr. Weston on July 19. The procedure note was reviewed, and after prepping the extremity, incision was carried out distal to the olecranon tip through the skin. There was some scarred tissue adherent to the triceps insertion with what appeared to be a tophaceous gout with chalky substance noted within. Cultures were taken, and blunt dissection created a plane medially and laterally. He is feeling better now with less pain. He has a dressing in place. He has better mobility of the elbow than compared to before. OBJECTIVE: VITAL SIGNS: He is afebrile and heart rate of 70, O2 saturations 93 to 96. GENERAL: Awake, alert. LUNGS: Clear. CARDIAC: S1, S2. Regular rate. ABDOMEN: Soft. EXTREMITIES: Left elbow in a dressing but much less painful than before. LABORATORY DATA: White cell count is 8.2, hemoglobin 12.9, and platelets 238 with a creatinine of 0.78. The elbow sample showed no wbc's and no organisms seen. Cultures are pending. ASSESSMENT AND DISCUSSION: 1. Type 2 diabetes. 2. History of gout. 3. Injury to the left elbow and inflammatory process. The possibility of gout now comes to the forefront in view of Dr. Weston's findings and the Gram stain from the sample submitted. Of note, there were rare or no wbc's seen. We will have to wait for the final culture results before we make a final decision, but it is looks like we were dealing with a crystal-induced inflammatory process. One way or another, we may have to give him oral antimicrobial therapy in addition to anti-inflammatory treatment for the crystal-induced process. Job ID: [id number]
[2020-07-20] MEDS: cefTRIAXone\\ROCEPHIN 2 GM in Sodium Chloride 0.9% 100 ML IVPB SCH (21:28)
[2020-07-21] MEDS: Aspirin 81 mg Enteric Coated Tablet PO SCH (09:06)
[2020-07-21] MEDS: Famotidine 20 MG TAB PO SCH ×2 (09:06→20:44)
[2020-07-21] MEDS: Potassium Chloride 10 MEQ TAB PO SCH (09:06)
[2020-07-21] MEDS: Losartan 25 MG TAB PO SCH (09:07)
[2020-07-21] MEDS: Furosemide 20 MG TAB PO SCH (09:07)
[2020-07-21] MEDS: Vancomycin 1 GM in Premix Bag 1 BAG IVPB SCH ×2 (09:07→21:41)
[2020-07-21] MEDS: Allopurinol 100 MG TAB PO SCH (09:07)
[2020-07-21 09:37] LABS: Vancomycin, Trough 18.6 ug/mL
--- NOTE | 2020-07-21 11:42 | PDOC.HOSPP ---
- Subjective Encounter Date: 07/21/20 Encounter Time: 09:10 Subjective: Patient seen for follow-up for cellulitis. He denies any complaints today. - Objective Vital Signs & Weight: Vital Signs (12 hours) Temp Pulse Resp BP Pulse Ox 07/21/20 07:15 97.9 F 74 18 138/64 94 L 07/21/20 04:15 97.7 F 68 18 127/72 95 07/20/20 23:55 98 F 65 18 134/75 95 Weight Weight 161 lb I&O: 07/20/20 07/21/20 07/22/20 06:59 06:59 06:59 Intake Total 540 Output Total 1450 Balance -910 Result Diagrams: 07/19/20 05:33 07/19/20 05:33 Additional Labs: I reviewed patient's labs and MAR Hospitalist ROS - Review of Systems Gastrointestinal: denies: nausea, vomiting, abdominal pain, diarrhea, constipation Genitourinary: denies: dysuria, frequency, incontinence, hematuria, retention - Medication Medications: Active Medications Generic Name Dose Route Start Last Admin Trade Name [place] PRN Reason Stop Dose Admin Allopurinol 100 mg 07/17/20 09:00 07/21/20 09:07 Allopurinol 100 Mg Tab PO 100 mg DAILY HUGO Administration Aspirin 81 mg 07/17/20 09:00 07/21/20 09:06 Aspirin 81 Mg Enteric Coated Tablet PO 81 mg DAILY HUGO Administration Famotidine 20 mg 07/16/20 09:00 07/21/20 09:06 Famotidine 20 Mg Tab PO 20 mg BID HUGO Administration Furosemide 20 mg 07/17/20 09:00 07/21/20 09:07 Furosemide 20 Mg Tab PO 20 mg DAILY HUGO Administration Ceftriaxone Sodium 2 gm/ 100 mls @ 200 mls/hr 07/17/20 21:00 07/20/20 21:28 Sodium Chloride IVPB 100 mls Q24HR HUGO Administration Vancomycin HCl 1 gm/ Device 200 mls @ 200 mls/hr 07/18/20 22:00 07/21/20 09:07 IVPB 200 mls 1000,2200 HUGO Administration Losartan Potassium 25 mg 07/17/20 09:00 07/21/20 09:07 Losartan 25 Mg Tab PO 25 mg DAILY HUGO Administration Potassium Chloride 10 meq 07/17/20 08:00 10/20/20 09:06 Potassium Chloride 10 Meq Tab PO 10 meq QAM-WM HUGO Administration Simvastatin 5 mg 07/17/20 17:00 07/20/20 16:37 Simvastatin 5 Mg Tab PO 5 mg QPM-WM HUGO Administration Sodium Chloride 10 ml 07/16/20 21:00 07/21/20 09:07 Flush - Normal Saline 10 Ml Syringe IVF 10 ml Q12HR HUGO Administration - Exam General Appearance: awake alert Eye: anicteric sclera ENT: moist mucosa Neck: supple Heart: RRR Respiratory: CTAB Gastrointestinal: soft, non-tender Extremities - other findings: Left elbow dressing Psychiatric: normal affect, normal behavior Hosp A/P - Plan -Assessment (1) Cellulitis of left elbow Code(s): L03.114 - CELLULITIS OF LEFT UPPER LIMB Status: Acute (2) HTN (hypertension) Code(s): I10 - ESSENTIAL (PRIMARY) HYPERTENSION Status: Chronic (3) CAD (coronary artery disease) Code(s): I25.10 - ATHSCL HEART DISEASE OF [place] CORONARY ARTERY W/O ANG PCTRS Status: Chronic - Plan Patient has cellulitis of the left elbow as well as gout. Continue ceftriaxone and vancomycin, follow cultures. HTN controlled CAD stable. DVT prophylaxis with SCDs.
[2020-07-21] MEDS ORDERED: Morphine 2 MG/ML VIAL SLOW IVP PRN (15:25)
[2020-07-21] MEDS ORDERED: Morphine 4 MG/ML VIAL SLOW IVP PRN (15:26)
[2020-07-21] MEDS: Simvastatin 5 MG TAB PO SCH (17:55)
[2020-07-21] MEDS: cefTRIAXone\\ROCEPHIN 2 GM in Sodium Chloride 0.9% 100 ML IVPB SCH (20:45)
[2020-07-21] MEDS ORDERED: Acetaminophen 325 MG TAB PO PRN (20:55)
[2020-07-22] MEDS: Potassium Chloride 10 MEQ TAB PO SCH (10:30)
[2020-07-22] MEDS: Allopurinol 100 MG TAB PO SCH (10:31)
[2020-07-22] MEDS: Furosemide 20 MG TAB PO SCH (10:31)
[2020-07-22] MEDS: Losartan 25 MG TAB PO SCH (10:31)
[2020-07-22] MEDS: Famotidine 20 MG TAB PO SCH ×2 (10:31→20:47)
[2020-07-22] MEDS: Aspirin 81 mg Enteric Coated Tablet PO SCH (10:31)
[2020-07-22] MEDS: Vancomycin 1 GM in Premix Bag 1 BAG IVPB SCH (10:32)
--- NOTE | 2020-07-22 17:03 | PDOC.HOSPP ---
- Subjective Encounter Date: 07/22/20 Encounter Time: 10:00 Subjective: Seen for follow-up regarding cellulitis. No complaints today. - Objective Vital Signs & Weight: Vital Signs (12 hours) Temp Pulse Resp BP Pulse Ox 07/22/20 15:22 98.2 F 65 18 106/61 94 L 07/22/20 12:00 97 07/22/20 11:15 97.7 F 75 18 120/60 97 07/22/20 08:00 97 07/22/20 07:29 97.9 F 64 18 137/74 91 L Weight Admit Weight 161 lb Weight 161 lb I&O: 07/21/20 07/22/20 07/23/20 06:59 06:59 06:59 Intake Total 1280 Output Total 3300 -2019 Result Diagrams: 07/19/20 05:33 07/19/20 05:33 Additional Labs: Labs and MAR reviewed by wi Hospitalist ROS - Review of Systems Cardiovascular: denies: chest pain, palpitations, orthopnea, paroxysmal noc. d yspnea, edema, light headedness Neurological: denies: weakness, numbness, incoordination, change in speech, confusion - Medication Medications: Active Medications Generic Name Dose Route Start Last Admin Trade Name Freq PRN Reason Stop Dose Admin Acetaminophen 650 mg 07/21/20 20:55 07/21/20 21:40 Acetaminophen 325 Mg Tab PO 650 mg Q4H PRN Administration Headache/Fever or Pain Allopurinol 100 mg 07/17/20 09:00 07/22/20 10:31 Allopurinol 100 Mg Tab PO 100 mg DAILY HUGO Administration Aspirin 81 mg 07/17/20 09:00 07/22/20 10:31 Aspirin 81 Mg Enteric Coated Tablet PO 81 mg DAILY HUGO Administration Famotidine 20 mg 07/16/20 09:00 07/22/20 10:31 Famotidine 20 Mg Tab PO 20 mg BID HUGO Administration Furosemide 20 mg 07/17/20 09:00 07/22/20 10:31 Furosemide 20 Mg Tab PO 20 mg DAILY HUGO Administration Ceftriaxone Sodium 2 gm/ 100 mls @ 200 mls/hr 07/17/20 21:00 07/21/20 20:45 Sodium Chloride IVPB 100 mls Q24HR HUGO Administration Vancomycin HCl 1 gm/ Device 200 mls @ 200 mls/hr 07/18/20 22:00 07/22/20 10:32 IVPB 200 mls 1000,2200 HUGO Administration Losartan Potassium 25 mg 07/17/20 09:00 07/22/20 10:31 Losartan 25 Mg Tab PO 25 mg DAILY HUGO Administration Morphine Sulfate 2 mg 07/21/20 15:25 07/22/20 11:09 Morphine 2 Mg/Ml Vial SLOW IVP 2 mg DAILYPRN PRN Administration Dressing change pain (4-6) Potassium Chloride 10 meq 07/17/20 08:00 07/22/20 10:30 Potassium Chloride 10 Meq Tab PO 10 meq QAM-WM HUGO Administration Simvastatin 5 mg 07/17/20 17:00 07/21/20 17:55 Simvastatin 5 Mg Tab PO 5 mg QPM-WM HUGO Administration Sodium Chloride 10 ml 07/16/20 21:00 07/22/20 10:32 Flush - Normal Saline 10 Ml Syringe IVF 10 ml Q12HR HUGO Administration - Exam General Appearance: awake alert Eye: anicteric sclera ENT: moist mucosa Neck: supple Heart: RRR Respiratory: CTAB Gastrointestinal: soft, non-tender Extremities: no edema Skin - other findings: L elbow in dressing Psychiatric: normal affect, normal behavior Hosp A/P - Plan -Assessment (1) Cellulitis of left elbow Code(s): L03.114 - CELLULITIS OF LEFT UPPER LIMB Status: Acute (2) HTN (hypertension) Code(s): I10 - ESSENTIAL (PRIMARY) HYPERTENSION Status: Chronic (3) CAD (coronary artery disease) Code(s): I25.10 - ATHSCL HEART DISEASE OF [place] CORONARY ARTERY W/O ANG PCTRS Status: Chronic - Plan Continue ceftriaxone and vancomycin, follow cultures. CAD stable. DVT prophylaxis with SCDs. HTN controlled.
--- NOTE | 2020-07-22 17:22 | PRG ---
DATE OF SERVICE: 07/22/2020 SUBJECTIVE: Mr. Hernandez is eating his dinner. He is feeling good. Minimal pain. There is negative pressure dressing. There are no respiratory symptoms or abdominal pain. No diarrhea. OBJECTIVE: VITAL SIGNS: He has been afebrile since admission. LUNGS: Clear. HEART: S1 and S2. Regular rate. EXTREMITIES: Left shoulder with negative pressure dressing. LABORATORY DATA: The cultures are negative thus far. This is 48 hours, it is actually 72 hours now, and the interesting thing is that no wbc's were seen. It is quite unusual, but the path report shows monosodium urate crystals. Background has histiocytes, but no wbc's. ASSESSMENT AND DISCUSSION: Type 2 diabetes, history of gout, inflammatory process, left elbow with monosodium urate crystals only, cultures negative. I think there was going to eventually turned out negative upon final results, but basically, I am going to go ahead and discontinue antimicrobial therapy. This is a quite remarkable case of severe gout. I wonder if the trauma kind of precipitated the acute attack at the more likely scenario without superimposed infection. Job ID: [id number]
[2020-07-22] MEDS: Simvastatin 5 MG TAB PO SCH (17:28)
[2020-07-22] MEDS: Colchicine 0.6 MG TAB PO SCH (20:47)
[2020-07-23] MEDS: Aspirin 81 mg Enteric Coated Tablet PO SCH (09:56)
[2020-07-23] MEDS: Potassium Chloride 10 MEQ TAB PO SCH (09:57)
[2020-07-23] MEDS: Allopurinol 100 MG TAB PO SCH (09:57)
[2020-07-23] MEDS: Furosemide 20 MG TAB PO SCH (09:57)
[2020-07-23] MEDS: Famotidine 20 MG TAB PO SCH ×2 (09:57→21:01)
[2020-07-23] MEDS: Colchicine 0.6 MG TAB PO SCH ×2 (09:57→20:56)
[2020-07-23] MEDS: Losartan 25 MG TAB PO SCH (09:57)
--- NOTE | 2020-07-23 14:51 | PDOC.HOSPP ---
- Subjective Encounter Date: 07/23/20 Encounter Time: 09:00 Subjective: Patient seen for follow-up for gout flareup. Denies chest pain or shortness of breath. - Objective Vital Signs & Weight: Vital Signs (12 hours) Temp Pulse Resp BP Pulse Ox 07/23/20 12:00 92 L 07/23/20 11:42 98.1 F 60 18 120/68 92 L 07/23/20 08:00 97 07/23/20 07:45 97.9 F 62 20 136/77 97 07/23/20 03:29 97.6 F 65 18 143/80 H 96 Weight Admit Weight 161 lb Weight 161 lb I&O: 07/22/20 07/23/20 07/24/20 06:59 06:59 06:59 Intake Total 1280 1770 Output Total 3300 1100 Balance -2019 670 Result Diagrams: 07/19/20 05:33 07/19/20 05:33 Additional Labs: I reviewed patient's labs and MAR Hospitalist ROS - Review of Systems Cardiovascular: denies: chest pain, palpitations, orthopnea, paroxysmal noc. dyspnea, edema Genitourinary: denies: dysuria, frequency, incontinence, hematuria, retention Musculoskeletal: reports: other (Left elbow pain) - Medication Medications: Active Medications Generic Name Dose Route Start Last Admin Trade Name Freq PRN Reason Stop Dose Admin Acetaminophen 650 mg 07/21/20 20:55 07/21/20 21:40 Acetaminophen 325 Mg Tab PO 650 mg Q4H PRN Administration Headache/Fever or Pain Allopurinol 100 mg 07/17/20 09:00 07/23/20 09:57 Allopurinol 100 Mg Tab PO 100 mg DAILY HUGO Administration Aspirin 81 mg 07/17/20 09:00 07/23/20 09:56 Aspirin 81 Mg Enteric Coated Tablet PO 81 mg DAILY HUGO Administration Colchicine 0.6 mg 07/22/20 21:00 07/23/20 09:57 Colchicine 0.6 Mg Tab PO 0.6 mg BID HUOG Administration Famotidine 20 mg 07/16/20 09:00 07/23/20 09:57 Famotidine 20 Mg Tab PO 20 mg BID HUGO Administration Furosemide 20 mg 07/17/20 09:00 07/23/20 09:57 Furosemide 20 Mg Tab PO 20 mg DAILY HGUO Administration Losartan Potassium 25 mg 07/17/20 09:00 07/23/20 09:57 Losartan 25 Mg Tab PO 25 mg DAILY HUGO Administration Morphine Sulfate 2 mg 07/21/20 15:25 07/22/20 11:09 Morphine 2 Mg/Ml Vial SLOW IVP 2 mg DAILYPRN PRN Administration Dressing change pain (4-6) Potassium Chloride 10 meq 07/17/20 08:00 07/23/20 09:57 Potassium Chloride 10 Meq Tab PO 10 meq QAM-WM HUGO Administration Simvastatin 5 mg 07/17/20 17:00 07/22/20 17:28 Simvastatin 5 Mg Tab PO 5 mg QPM-WM HUGO Administration Sodium Chloride 10 ml 07/16/20 21:00 07/23/20 09:58 Flush - Normal Saline 10 Ml Syringe IVF 10 ml Q12HR HUGO Administration - Exam General Appearance: awake alert Eye: anicteric sclera ENT: moist mucosa Neck: supple Heart: RRR Respiratory: CTAB Gastrointestinal: soft, non-tender Skin: no rashes Psychiatric: normal affect, normal behavior Hosp A/P - Plan -Assessment (1) Gout flare Status: Acute (2) Cellulitis of left elbow Status: Acute (3) CAD (coronary artery disease) Code(s): I25.10 - ATHSCL HEART DISEASE OF [place] CORONARY ARTERY W/O ANG PCTRS Status: Chronic (4) HTN (hypertension) Code(s): I10 - ESSENTIAL (PRIMARY) HYPERTENSION Status: Chronic - Plan Antibiotics have been discontinued. Continue colchicine. Wound VAC in place. Patient will need wound VAC and outpatient wound VAC management. Case management consulted. CAD stable. DVT prophylaxis with SCDs. HTN controlled.
[2020-07-23] MEDS: Simvastatin 5 MG TAB PO SCH (17:07)
[2020-07-24] MEDS: Potassium Chloride 10 MEQ TAB PO SCH (10:00)
[2020-07-24] MEDS: Colchicine 0.6 MG TAB PO SCH (10:00)
[2020-07-24] MEDS: Losartan 25 MG TAB PO SCH (10:00)
[2020-07-24] MEDS: Allopurinol 100 MG TAB PO SCH (10:01)
[2020-07-24] MEDS: Famotidine 20 MG TAB PO SCH (10:01)
[2020-07-24] MEDS: Furosemide 20 MG TAB PO SCH (10:01)
[2020-07-24] MEDS: Aspirin 81 mg Enteric Coated Tablet PO SCH (10:01)
[2020-07-24 10:58] VITALS: BP 117/81; TEMP 97.9
--- NOTE | 2020-07-25 02:24 | DIS ---
DATE OF ADMISSION: 07/16/2020 DATE OF DISCHARGE: 07/24/2020 PRIMARY CARE PROVIDER: Lupe Torres, she is a physician multimedia assistant at [employer] in [place]. DISCHARGE DIAGNOSES: 1. Gout flare. 2. Left elbow cellulitis. 3. Hyponatremia. 4. COVID-19 test negative. CONDITION OF PATIENT ON THE DAY OF DISCHARGE: Stable. I assessed Mr. Hernandez on the day of discharge. He denies any chest pain or shortness of breath. Vital signs are stable. S1 and S2 are heard, regular. Lungs are clear to auscultation bilaterally. CONSULTATIONS DURING THIS HOSPITALIZATION: Infectious Diseases, Dr. Burgess; and Orthopedic Surgery, Mr. Mohinder Mendoza. HOSPITAL COURSE: Mr. Hernandez is a pleasant 75-year-old gentleman, who was admitted to [facility] for left elbow cellulitis. He was seen by Infectious Diseases and Orthopedic Surgery Service. He was treated with broad-spectrum antibiotics. He did not have fever or leukocytosis. He underwent incision and drainage of left elbow on July 19, 2020. He was found to have what appeared to be gouty tophus and chalky substance at the insertion of triceps muscle. This was sent off for culture. Wound cultures were also taken. Wound VAC was applied to the wound. Infectious Diseases Service felt that this was not a case of septic arthritis. Antibiotics were discontinued, and patient continued to improve. At the time of this dictation, 1 out of 2 blood cultures grew coagulase-negative Staph, likely contaminant. The elbow preliminary cultures did not show any growth. The patient is advised to follow up with primary care provider for final culture result. He was started on colchicine with significant improvement. He is being discharged home on colchicine 0.6 mg 2 times a day for 5 more days. His home medications were resumed. He is advised to follow up with his primary care provider in 3 days time. POST-ACUTE CARE FOLLOWUP: With primary care provider in 3 days. Arrangements are also being made at [facility] for followup. ACTIVITY: As tolerated. DIET: Heart healthy. DISCHARGE DESTINATION: Home. TIME SPENT: Total amount of time spent coordinating this discharge: 33 minutes. Job ID: [id number]
--- NOTE | 2020-07-27 09:12 | PQF ---
CLINICAL DOCUMENTATION CLARIFICATION FORM: Dear : Jonnie Weston Date / Time: 07/27/2020 09:11 Please exercise your independent, professional judgment in responding to the clarification form. Clinical indicators are provided on the bottom of this form for your review Please check appropriate box(es): [ ] Incision and Drainage only (No Debridement): Depth: [ ] Skin [ ] Subcutaneous [ ] Fascia [ ] Muscle [ ] Tendon [ ] Bone [ ] Other procedure diagnosis [ ] Unable to determine Physician Signature: Date/Time: For continuity of documentation, please document condition throughout progress notes and discharge summary. Thank You. To be completed by CDI/Coding staff for physician review: Present Clinical Indicators - Signs / Symptoms / Labs Results and Location in Medical Record [x] Incision and drainage left elbow OP Note 07/19 [x] Incisiona just distal to the olecranon tip came down through skin and has scarred in tissue that was adhered to the patients triceps insertion OP Note 07/19 [x] Some serous fluid was other which could be consistent with staph of strep infection OP Note 07/19 [x] I washed with 2L water and packed the wound open OP Note 07/19 Present Risk Factors Results and Location in Medical Record [x] 75 years old male HP 07/16 [x] DM HP 07/16 [x] Arthritis HP 07/16 [x] Gout HP 07/16 Present Treatments Results and Location in Medical Record [x] Incision and drainage OP Note 07/19 [x] Elbow culture Collected 07/19 [x] Vancomycin 1.25gm IV DEC 09 [x] Rocephin 1gm IV DEC 09 CDS/Computing Tutor Signature: Luis Daniel Ma Phone #: ext [phone] Date/Time: 07/27/20 09:11 This is a permanent part of the Medical Record [facility]
== END 2020-07-24 13:45 | disposition home or self-care (01) | DRG 554 ==
LOC: ERS 22:21 → SURG B 07-16 01:55
PROVIDERS: ADMIT Internal Medicine; ATTEND Internal Medicine
PROC: 3E02340 Introduction of Influenza Vaccine into Muscle, Percutaneous Approach (ICD-10-PCS; principal; 2020-07-16)
PROC: 0R9M0ZX Drainage of Left Elbow Joint, Open Approach, Diagnostic (ICD-10-PCS; 2020-07-19)
DX: M1A.0221 Idiopathic chronic gout, left elbow, with tophus (tophi) (principal); L03.114 Cellulitis of left upper limb; E87.1 Hypo-osmolality and hyponatremia; E11.9 Type 2 diabetes mellitus without complications; M19.90 Unspecified osteoarthritis, unspecified site; Z23 Encounter for immunization; E78.5 Hyperlipidemia, unspecified; I25.10 Atherosclerotic heart disease of native coronary artery without angina pectoris; Z96.653 Presence of artificial knee joint, bilateral; I10 Essential (primary) hypertension; E66.9 Obesity, unspecified; Z20.828 Contact with and (suspected) exposure to other viral communicable diseases; Z68.23 Body mass index [BMI] 23.0-23.9, adult; Z91.81 History of falling; Z95.0 Presence of cardiac pacemaker; Z79.899 Other long term (current) drug therapy
CPT/HCPCS: 36415; 80048; 80202; 84550; 85025; 87040; 87070; 87149; 87205; 87635; 88305; 88333; 89060; 90471; 90662; 90732; 99284; G0008; G0009; J0696; J1200; J2270; J2405; J2704; J3010; J3370; J3490; J7050; U0003